=== PATIENT | male | born 1990 | race Caucasian/White ===

== ENCOUNTER 2018-09-19 13:24 | Emergency (ER) | payer MEDICAID ==
[~2018-09-19] VITALS: Ht 170.2 cm; Wt 77.3 kg
[2018-09-19] MEDS ORDERED: IBUPROFEN 600 MG TABLET PO ONE (14:30)
[2018-09-19] MEDS ORDERED: ACETAMINOPHEN 500 MG TABLET PO ONE (14:30)
[2018-09-19] MEDS ORDERED: ONDANSETRON HCL 4 MG TABLET PO ONE (14:45)
[2018-09-19 15:27] LABS: INFLUENZA TYPE A NEGATIVE FOR TYPE A (NEGATIVE); INFLUENZA TYPE B NEGATIVE FOR TYPE B (NEGATIVE)
[2018-09-19 16:10] VITALS: BP 111/71
== END 2018-09-19 16:42 | disposition home or self-care (01) ==
LOC: EMS 13:26
DX: J11.1 Influenza due to unidentified influenza virus with other respiratory manifestations (principal); J45.909 Unspecified asthma, uncomplicated; F12.90 Cannabis use, unspecified, uncomplicated
CPT/HCPCS: 71046; 87804; 99284; Q0162